=== PATIENT | male | born 1960 | race Caucasian/White ===

== ENCOUNTER 2017-06-02 18:41 | Emergency (ER) | payer OTHER ==
[~2017-06-02] VITALS: Ht 172.7 cm; Wt 70.6 kg
[2017-06-02 18:49] VITALS: BP 156/78; PULSE 66; TEMP 36.4; O2SAT 96; Ht 172.7 cm; Wt 70.6 kg
[2017-06-02] MEDS ORDERED: PROPARACAINE HCL 0.5% OP SOLN 15 ML BTL ONE (19:33)
[2017-06-02] MEDS ORDERED: CYCLOPENTOLATE HCL 1% OP SOLN 2 ML BTL OPL STA (19:48)
[2017-06-02] MEDS ORDERED: TOBRAMYCIN/DEXAMETHASONE OPH SUSP 2.5 ML BTL OPB STA (19:48)
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
== END 2017-06-02 20:17 | disposition home or self-care (01) ==
LOC: C.EDB 18:42 → C.EDD 20:17
DX: T26.12XA Burn of cornea and conjunctival sac, left eye, initial encounter (principal); T26.40XA Burn of unspecified eye and adnexa, part unspecified, initial encounter; T20.00XA Burn of unspecified degree of head, face, and neck, unspecified site, initial encounter; X10.1XXA Contact with hot food, initial encounter; Y92.9 Unspecified place or not applicable; F17.210 Nicotine dependence, cigarettes, uncomplicated

== ENCOUNTER 2022-04-06 03:36 | Observation (INO) ==
[2022-04-06] MEDS ORDERED: SODIUM CHLORIDE 0.9% 1000ML 500 ML IV ONE (03:54)
--- NOTE | 2022-04-06 03:55 | Emergency Department Note ---
Impression & Plan Chest pain ADMIT ED Provider Note HPI: The patient is a 61-year-old male who presents the emergency department with a chief complaint of chest pain. Patient states that he awoke shortly prior to arrival to the ED and was having pain substernally that radiated somewhat up to the right part of his neck and into his back. On arrival here to the ED the patient is hypertensive at 158/105, heart rate is within normal limits, he states his pain has "eased up". He is saturating well on room air on arrival. ROS: -Cardio: Chest pain *10 point review systems was conducted and is otherwise negative unless stated above *Outpatient medications and allergy history reviewed PE: General: Alert, NAD HEENT: Normocephalic, atraumatic Eyes: Extraocular eye movement is intact, no scleral erythema Pulmonary: Clear to auscultation bilaterally, no wheezing Cardio: Regular rate and rhythm GI: Abdomen is soft, nontender : No suprapubic tenderness MSK: No evidence of trauma or malformation of the extremities, no edema Skin: No evidence of rash Neuro: Alert, no focal deficits Psychiatric: Cooperative laboratory monitor: - An order was placed for continuous cardiac monitoring - Patient was noted to be in sinus rhythm with a rate of 65 CTA CHEST: No pulmonary emboli. No acute chest finding. No aortic aneurysm. Enlarged heart. No pericardial effusion. Dependent lung atelectasis. Innumerable liver cystic lesions. Radiologist: Renan Rodríguez MD Study ready at 04:17 and initial results transmitted at 04:49 EKG: Rate: 57 Rhythm: Sinus bradycardia Intervals: Within normal limits ST changes: No ST elevation Time: 0346 Medical Decision Making: Patient presented to the emergency department with chief complaint of chest pain, patient states the pain woke him from sleep at around 3 AM. Patient describes the pain as substernal in nature, states it does radiate somewhat to his right jaw. On arrival here to the ED the patient is in no acute distress, he is hypertensive but otherwise hemodynamically stable. IV was established, lab work obtained, troponin is within normal limits, CT angiography of the chest was obtained that does not show any evidence of aortic dissection or PE. Patient declined pain medication but on my reassessment states he still does have some mild chest discomfort, he does have hypertension here, also mentions history of hyperlipidemia that he is not currently on treatment for, given his age and risk factors and the fact that he still having discomfort, I do feel that he is appropriate for admission and stress testing. Patient is in agreement, case was discussed with the on-call hospitalist for [facility] and the patient was admitted in stable condition for further care. Diagnosis: 1. Chest pain, acute 2. Hypertension Disposition: ADMIT Gilberto Christopher DO Emergency Medicine Past Med/Surg History Medical History (Updated 04/06/22 @ 05:03 by Gilberto Christopher DO) No significant past medical history Social History Smoking Status: Current some day smoker Tobacco Type: Cigars Preferred Language: Palestinian Feels Safe at Home: Yes Allergies Allergies Allergy/AdvReac Type Severity Reaction Status Date / Time No Known Allergies Allergy Unverified 06/02/17 19:31 Results & Data (ED) Vital Signs Vital Signs - 24 hr 04/06/22 03:40 04/06/22 03:55 04/06/22 03:55 Temperature 36.5 C Temperature Source Temporal Artery Scan Pulse Rate 61 Pulse Rate [Finger] Respiratory Rate 20 Respiratory Effort / Characteristics Respiratory Depth Normal Blood Pressure 158/105 H Blood Pressure [Right Arm] Blood Pressure Mean 122 Blood Pressure Mean [Right Arm] Blood Pressure Position [Right Arm] Pulse Oximetry 98 Oxygen Delivery Method Room Air Room Air Room Air Sepsis New/Unexplained Change in Mental Status N/A Sepsis Action Taken by Nursing No Action Required 04/06/22 04:13 04/06/22 06:43 Temperature Temperature Source Pulse Rate Pulse Rate [Finger] 58 L 63 Respiratory Rate 16 18 Respiratory Effort / Characteristics Non-Labored Spontaneous Non-Labored Spontaneous Respiratory Depth Normal Normal Blood Pressure Blood Pressure [Right Arm] 134/90 128/87 Blood Pressure Mean Blood Pressure Mean [Right Arm] 104 100 Blood Pressure Position [Right Arm] Lying Pulse Oximetry 98 94 Oxygen Delivery Method Room Air Room Air Sepsis New/Unexplained Change in Mental Status Sepsis Action Taken by Nursing Laboratory Data Result diagrams: 04/06/22 03:52 04/06/22 03:52 Lab Results 04/06/22 04/06/22 04/06/22 Range/Units 03:52 03:52 03:52 WBC 8.59 (4.8-10.8) K/ul RBC 5.34 (4.63-6.08) M/uL Hgb 17.2 (14.0-18.0) g/dl Hct 48.9 (40.1-51.0) % MCV 91.6 (80.0-100.0) fL MCH 32.2 (25.0-34.0) pg MCHC 35.2 (32.0-36.0) g/dL RDW Std Deviation 40.0 (36.4-46.3) fL RDW Coeff of Franklin 12.0 (11.5-14.5) % Plt Count 202 (130-400) K/uL MPV 9.2 L (9.4-12.4) fL Immature Gran % (Auto) 0.2 % Neut % (Auto) 54.1 % Lymph % (Auto) 32.0 % Moore % (Auto) 6.8 % Eos % (Auto) 5.9 % Baso % (Auto) 1.0 % Neut # (Auto) 4.64 (1.4-6.5) K/uL Lymph # (Auto) 2.75 (1.2-3.4) K/uL Moore # (Auto) 0.58 (0.24-0.82) K/uL Eos # (Auto) 0.51 H (0-0.50) K/uL Baso # (Auto) 0.09 (0-0.2) K/uL Immature Gran # (Auto) 0.02 (0.00-0.02) K/uL PT 10.8 (9.0-12.0) Seconds INR 1.0 (0.9-1.1) APTT 27.6 (21.0-31.0) Seconds PTT Ratio 1.0 Sodium 139 (136-145) mmol/L Potassium 4.2 (3.5-5.1) mmol/L Chloride 106 (98-107) mmol/L Carbon Dioxide 27 (21-32) mmol/L Anion Gap 6 (3-11) BUN 21 (6-23) mg/dl Creatinine 1.12 (0.6-1.4) mg/dl Est Cr Clr Drug Dosing 67.9 ml/min Est GFR ( Amer) 82.3 ml/min Est GFR (Non-Af Amer) 71.0 ml/min BUN/Creatinine Ratio 18.8 (10-20) Glucose 89 (70-99(Fasting)) mg/dl Calcium 9.2 (8.5-10.1) mg/dl Total Bilirubin 0.5 (0.2-1.0) mg/dl AST 17 (13-39) U/L ALT 15 (7-52) U/L Alkaline Phosphatase 78 (34-104) U/L Troponin I High Sens 2.9 (0-20) pg/ml Total Protein 7.0 (6.0-8.3) gm/dl Albumin 4.4 (3.4-5.0) gm/dl Globulin 2.6 (2.5-4.0) gm/dl Albumin/Globulin Ratio 1.7 (0.9-2) Lipase 45 (11-82) U/L TSH (0.300-4.500) uIu/ml Lyme Disease IgG Ab (Negative) Lyme Disease IgM Ab (Negative) SARS-CoV-2, RNA, NAAT (NEGATIVE) 04/06/22 04/06/22 04/06/22 Range/Units 03:52 03:52 05:14 WBC (4.8-10.8) K/ul RBC (4.63-6.08) M/uL Hgb (14.0-18.0) g/dl Hct (40.1-51.0) % MCV (80.0-100.0) fL MCH (25.0-34.0) pg MCHC (32.0-36.0) g/dL RDW Std Deviation (36.4-46.3) fL RDW Coeff of Franklin (11.5-14.5) % Plt Count (130-400) K/uL MPV (9.4-12.4) fL Immature Gran % (Auto) % Neut % (Auto) % Lymph % (Auto) % Moore % (Auto) % Eos % (Auto) % Baso % (Auto) % Neut # (Auto) (1.4-6.5) K/uL Lymph # (Auto) (1.2-3.4) K/uL Moore # (Auto) (0.24-0.82) K/uL Eos # (Auto) (0-0.50) K/uL Baso # (Auto) (0-0.2) K/uL Immature Gran # (Auto) (0.00-0.02) K/uL PT (9.0-12.0) Seconds INR (0.9-1.1) APTT (21.0-31.0) Seconds PTT Ratio Sodium (136-145) mmol/L Potassium (3.5-5.1) mmol/L Chloride (98-107) mmol/L Carbon Dioxide (21-32) mmol/L Anion Gap (3-11) BUN (6-23) mg/dl Creatinine (0.6-1.4) mg/dl Est Cr Clr Drug Dosing ml/min Est GFR ( Amer) ml/min Est GFR (Non-Af Amer) ml/min BUN/Creatinine Ratio (10-20) Glucose (70-99(Fasting)) mg/dl Calcium (8.5-10.1) mg/dl Total Bilirubin (0.2-1.0) mg/dl AST (13-39) U/L ALT (7-52) U/L Alkaline Phosphatase (34-104) U/L Troponin I High Sens (0-20) pg/ml Total Protein (6.0-8.3) gm/dl Albumin (3.4-5.0) gm/dl Globulin (2.5-4.0) gm/dl Albumin/Globulin Ratio (0.9-2) Lipase (11-82) U/L TSH 4.462 (0.300-4.500) uIu/ml Lyme Disease IgG Ab Negative (Negative) Lyme Disease IgM Ab Negative (Negative) SARS-CoV-2, RNA, NAAT NEGATIVE (NEGATIVE) 04/06/22 Range/Units 05:53 WBC (4.8-10.8) K/ul RBC (4.63-6.08) M/uL Hgb (14.0-18.0) g/dl Hct (40.1-51.0) % MCV (80.0-100.0) fL MCH (25.0-34.0) pg MCHC (32.0-36.0) g/dL RDW Std Deviation (36.4-46.3) fL RDW Coeff of Franklin (11.5-14.5) % Plt Count (130-400) K/uL MPV (9.4-12.4) fL Immature Gran % (Auto) % Neut % (Auto) % Lymph % (Auto) % Moore % (Auto) % Eos % (Auto) % Baso % (Auto) % Neut # (Auto) (1.4-6.5) K/uL Lymph # (Auto) (1.2-3.4) K/uL Moore # (Auto) (0.24-0.82) K/uL Eos # (Auto) (0-0.50) K/uL Baso # (Auto) (0-0.2) K/uL Immature Gran # (Auto) (0.00-0.02) K/uL PT (9.0-12.0) Seconds INR (0.9-1.1) APTT (21.0-31.0) Seconds PTT Ratio Sodium (136-145) mmol/L Potassium (3.5-5.1) mmol/L Chloride (98-107) mmol/L Carbon Dioxide (21-32) mmol/L Anion Gap (3-11) BUN (6-23) mg/dl Creatinine (0.6-1.4) mg/dl Est Cr Clr Drug Dosing ml/min Est GFR ( Amer) ml/min Est GFR (Non-Af Amer) ml/min BUN/Creatinine Ratio (10-20) Glucose (70-99(Fasting)) mg/dl Calcium (8.5-10.1) mg/dl Total Bilirubin (0.2-1.0) mg/dl AST (13-39) U/L ALT (7-52) U/L Alkaline Phosphatase (34-104) U/L Troponin I High Sens 2.9 (0-20) pg/ml Total Protein (6.0-8.3) gm/dl Albumin (3.4-5.0) gm/dl Globulin (2.5-4.0) gm/dl Albumin/Globulin Ratio (0.9-2) Lipase (11-82) U/L TSH (0.300-4.500) uIu/ml Lyme Disease IgG Ab (Negative) Lyme Disease IgM Ab (Negative) SARS-CoV-2, RNA, NAAT (NEGATIVE) Administered Medications Discontinued Medications Aspirin (Aspirin Chew 324 Mg) 324 mg PO NOW STA Stop: 04/06/22 05:29 Last Admin: 04/06/22 06:41 Dose: 324 mg Documented By: CC Sodium Chloride (Nss 1000ml) 500 mls @ 999 mls/hr IV .Q31M ONE Stop: 04/06/22 04:24 Last Infusion: 04/06/22 04:48 Dose: 0 mls/hr Documented By: Admin: 04/06/22 04:15 Dose: 999 mls/hr Documented By: CHELSY Ioversol (Optiray 300 500ml) 125 ml IV ONCE ONE Stop: 04/06/22 04:10 Last Admin: 04/06/22 04:10 Dose: 97 ml Documented By: MARLA Imaging Data Radiologist's Impression: Chest CTA 04/06/22 03:54 CT ANGIOGRAPHY OF THE CHEST, PULMONARY EMBOLUS PROTOCOL CLINICAL HISTORY: Chest pain. Shortness of breath. COMPARISON STUDY: No previous studies for comparison. TECHNIQUE: Following IV administration of 97 mL of Optiray, helical axial images of the chest were obtained utilizing the pulmonary embolus protocol. Maximal intensity projections and sagittal and coronal reformats were viewed on an independent 3D workstation. IV contrast was administered without complication. Automated exposure control was utilized for the study. A dose lowering technique was utilized adhering to the principles of ALARA. CT DOSE: 232.12 mGy.cm FINDINGS: No pulmonary emboli are identified. Mild cardiomegaly is noted. There is no pericardial effusion. No enlarged thoracic lymph nodes are present. There is no pneumothorax or pleural effusion. Linear subpleural opacities reflect atelectasis. There is no consolidation to suggest pneumonia. No acute fracture or suspicious lesion within the visualized bony thorax is noted. Innumerable cystic hepatic lesions are noted. These favor cysts. Biliary hamartomas could appear similar. These are benign. IMPRESSION: 1. No pulmonary emboli identified. 2. Mild cardiomegaly. 3. Linear subpleural opacities consistent with atelectasis. ACT 112: Negative or not required by law. Electronically signed by: Cristóbal Sterling M.D. 04/06/2022 7:14 AM Discharge Plan Visit Data Chief Complaint: Chest Pain Stated Complaint: CHEST PAIN ED Provider: Gilberto Christopher Discharge Problem: Chest pain Forms Stand Alone Forms: [facility] Referrals Referrals: Jg Vu MD [Primary Care Provider] - : Chest pain Qualifiers: Chest pain type: unspecified Qualified Code(s): R07.9 - Chest pain, unspecified
[2022-04-06 04:04] LABS: Basophils # (auto) 0.09 K/uL (0-0.2); Eosinophils # (auto) 0.51 K/uL (0-0.50); Eosinophils % (auto) 5.9 %; Hematocrit (blood only) 48.9 % (40.1-51.0); Hemoglobin 17.2 g/dl (14.0-18.0); Immature Granulocytes # (auto) 0.02 K/uL (0.00-0.02); Immature Granulocytes % (auto) 0.2 %; Lymphocytes # (auto) 2.75 K/uL (1.2-3.4); Mean Corpuscular Hemoglobin 32.2 pg (25.0-34.0); Mean Corpuscular Hgb Conc 35.2 g/dL (32.0-36.0); Mean Corpuscular Volume 91.6 fL (80.0-100.0); Mean Platelet Volume 9.2 fL (9.4-12.4); Monocytes # (auto) 0.58 K/uL (0.24-0.82); Monocytes % (auto) 6.8 %; Neutrophils # (auto) 4.64 K/uL (1.4-6.5); Neutrophils % (auto) 54.1 %; Platelet Count 202 K/uL (130-400); Red Blood Count 5.34 M/uL (4.63-6.08); White Blood Count 8.59 K/ul (4.8-10.8)
[2022-04-06] MEDS ORDERED: OPTIRAY 300 500mL IV ONE (04:09)
[2022-04-06 04:18] LABS: Partial Thromboplastin Time 27.6 Seconds (21.0-31.0); Prothrombin Time 10.8 Seconds (9.0-12.0)
[2022-04-06 04:27] LABS: Albumin Globulin Ratio 1.7 (0.9-2); Albumin Level 4.4 gm/dl (3.4-5.0); BUN Creatinine Ratio 18.8 (10-20); Bilirubin,Total 0.5 mg/dl (0.2-1.0); Calcium 9.2 mg/dl (8.5-10.1); Creatinine Clr Calc Pharmacy 67.9 ml/min; Est GFR (African American) 82.3 ml/min; Globulin 2.6 gm/dl (2.5-4.0); Potassium 4.2 mmol/L (3.5-5.1)
[2022-04-06 04:29] LABS: Troponin I High Sensitivity 2.9 pg/ml (0-20)
[2022-04-06] MEDS ORDERED: ASPIRIN CHEW 324 MG PO STA (05:28)
--- NOTE | 2022-04-06 05:46 | History & Physical Report ---
Date of Service April 06, 2022 Assessment & Plan (1) Chest pain: Plan: Rule out ACS given patient risk factors for ischemic heart disease HTN, patient BP elevated upon arrival at the ER Possible longstanding hypertension given cardiomegaly on CT chest initial read Daily alcohol intake, patient and not concerned about abuse Ongoing tobacco abuse OBS PCU Dobutamine stress echo Aspirin for CAD prevention until ACS ruled out Initiate lisinopril if with persistent BP elevation Nicotine patch as needed DVT prophylaxis. Lovenox subcu Full code Text document was generated using [employer] voice recognition software. It may contain grammatical or spelling errors. Kindly contact undersigned for clarification of any documentation item in question. History of Present Illness Chief Complaint: Chest pain Primary Care Provider: Jg Vu MD History obtained from patient, family, and records. Medical history significant for ongoing tobacco abuse. Patient woke up with achy chest pain going to his back and neck with some sweatiness. No fever, no chills, no shortness of breath. No unusual cough symptoms. May have had short-lived episodes a few years back which prompted a drug stress test as per patient. Patient took aspirin at home. Possible tick exposure at home due to dog and hunting. Patient brought by to the ER for evaluation. Chest pain currently not as bad as per patient. Medical History as above Surgical History : Inguinal hernia repair, foot surgery Family History : Heart disease, breast cancer, MS, colon cancer, leukemia Personal/Social history : Occasional cigar use, 4 beers nightly denies abuse, svp marketing & communications at [employer] Allergies Allergy/AdvReac Type Severity Reaction Status Date / Time No Known Allergies Allergy Unverified 06/02/17 19:31 Past Med/Surg History Medical History (Updated 04/06/22 @ 05:03 by Gilberto Christopher DO) No significant past medical history Social History Smoking Status: Current some day smoker Tobacco Type: Cigars Second Hand Exposure: No; Do You Dip or Chew Tobacco: No; Tobacco Cessation Education Requested by Patient: No Hx Alcohol Use: No Hx Substance Use: No Preferred Language: Arabic Communication Ability: Effective Data Sciences Director Required: No Beliefs That Will Affect Care: None Current Living Situation: Spouse Other Information That Helps Us Care for You: No Feels Safe at Home: Yes Safety Concerns: Feels Safe At This Time Assistive Devices: None Review of Systems Review of Systems: As per HPI, all other systems reviewed and negative Physical Exam Physical Exam: GENERAL: Comfortable, no respiratory distress SKIN: Normal color, warm HEENT: [place] palpebral conjunctivae, no ptosis, moist buccal mucosa NECK : Supple, no tenderness CHEST : CTA, no tenderness HEART : Bradycardic, no obvious murmurs ABDOMEN: Some distention, nontender EXTREMITIES : No LE swelling/tenderness, no other conspicuous deformities noted NEUROLOGIC : Coherent, no facial asymmetry, no other gross focality Results & Data Results & Data ([facility]) Vital Signs (Past 12 Hours) Vital Signs Temp Pulse Pulse Resp BP BP Pulse Ox 04/06/22 04:13 58 L 16 134/90 98 04/06/22 03:55 04/06/22 03:55 04/06/22 03:40 36.5 C 61 20 158/105 H 98 O2 Del Method 04/06/22 04:13 Room Air 04/06/22 03:55 Room Air 04/06/22 03:55 Room Air 04/06/22 03:40 Room Air Laboratory Results Laboratory Results WBC 8.59 K/ul (4.8-10.8) 04/06/22 03:52 RBC 5.34 M/uL (4.63-6.08) 04/06/22 03:52 Hgb 17.2 g/dl (14.0-18.0) 04/06/22 03:52 Hct 48.9 % (40.1-51.0) 04/06/22 03:52 MCV 91.6 fL (80.0-100.0) 04/06/22 03:52 MCH 32.2 pg (25.0-34.0) 04/06/22 03:52 MCHC 35.2 g/dL (32.0-36.0) 04/06/22 03:52 RDW Std Deviation 40.0 fL (36.4-46.3) 04/06/22 03:52 RDW Coeff of Franklin 12.0 % (11.5-14.5) 04/06/22 03:52 Plt Count 202 K/uL (130-400) 04/06/22 03:52 MPV 9.2 fL (9.4-12.4) L 04/06/22 03:52 Immature Gran % (Auto) 0.2 % 04/06/22 03:52 Neut % (Auto) 54.1 % 04/06/22 03:52 Lymph % (Auto) 32.0 % 04/06/22 03:52 [place] % (Auto) 6.8 % 04/06/22 03:52 Eos % (Auto) 5.9 % 04/06/22 03:52 Baso % (Auto) 1.0 % 04/06/22 03:52 Neut # (Auto) 4.64 K/uL (1.4-6.5) 04/06/22 03:52 Lymph # (Auto) 2.75 K/uL (1.2-3.4) 04/06/22 03:52 [place] # (Auto) 0.58 K/uL (0.24-0.82) 04/06/22 03:52 Eos # (Auto) 0.51 K/uL (0-0.50) H 04/06/22 03:52 Baso # (Auto) 0.09 K/uL (0-0.2) 04/06/22 03:52 Immature Gran # (Auto) 0.02 K/uL (0.00-0.02) 04/06/22 03:52 PT 10.8 Seconds (9.0-12.0) 04/06/22 03:52 INR 1.0 (0.9-1.1) 04/06/22 03:52 APTT 27.6 Seconds (21.0-31.0) 04/06/22 03:52 PTT Ratio 1.0 04/06/22 03:52 Sodium 139 mmol/L (136-145) 04/06/22 03:52 Potassium 4.2 mmol/L (3.5-5.1) 04/06/22 03:52 Chloride 106 mmol/L (98-107) 04/06/22 03:52 Carbon Dioxide 27 mmol/L (21-32) 04/06/22 03:52 Anion Gap 6 (3-11) 04/06/22 03:52 BUN 21 mg/dl (6-23) 04/06/22 03:52 Creatinine 1.12 mg/dl (0.6-1.4) 04/06/22 03:52 Est Cr Clr Drug Dosing 67.9 ml/min 04/06/22 03:52 Est GFR ( Amer) 82.3 ml/min 04/06/22 03:52 Est GFR (Non-Af Amer) 71.0 ml/min 04/06/22 03:52 BUN/Creatinine Ratio 18.8 (10-20) 04/06/22 03:52 Glucose 89 mg/dl (70-99(Fasting)) 04/06/22 03:52 Calcium 9.2 mg/dl (8.5-10.1) 04/06/22 03:52 Total Bilirubin 0.5 mg/dl (0.2-1.0) 04/06/22 03:52 AST 17 U/L (13-39) 04/06/22 03:52 ALT 15 U/L (7-52) 04/06/22 03:52 Alkaline Phosphatase 78 U/L (34-104) 04/06/22 03:52 Troponin I High Sens 2.9 pg/ml (0-20) 04/06/22 03:52 Total Protein 7.0 gm/dl (6.0-8.3) 04/06/22 03:52 Albumin 4.4 gm/dl (3.4-5.0) 04/06/22 03:52 Globulin 2.6 gm/dl (2.5-4.0) 04/06/22 03:52 Albumin/Globulin Ratio 1.7 (0.9-2) 04/06/22 03:52 Lipase 45 U/L (11-82) 04/06/22 03:[address] chest initial read: No pulmonaryemboli. No acute chest finding. No aortic aneurysm. Enlarged heart. No pericardial effusion. Dependent lung atelectasis. Innumerable liver cystic lesions. EKG as per my interpretation :Rate 55, sinus bradycardia, normal axis, septal infarct (1) Chest pain Chest pain type: unspecified Qualified Code(s): R07.9 - Chest pain, unspecified
[2022-04-06] MEDS ORDERED: NITROGLYCERIN SL 0.4 MG/TAB TAB SL PRN ×2 (06:55→08:47)
[2022-04-06] MEDS ORDERED: SODIUM CHLORIDE 0.9% 1000ML 1,000 ML IV ONE (06:55)
[2022-04-06] MEDS ORDERED: LORazepam 0.5 MG TAB PO PRN (06:55)
[2022-04-06] MEDS ORDERED: MoRPHine SULFATE 2 MG/ML CARP IV PRN (06:55)
[2022-04-06] MEDS ORDERED: traMADol HCL 50 MG TABLET PO PRN (06:55)
[2022-04-06 07:15] LABS: Lyme Ab IgG w/WB Rflx Negative (Negative); Lyme Ab IgM w/WB Rflx Negative (Negative)
--- NOTE | 2022-04-06 07:15 | CT Scan Report ---
CT ANGIOGRAPHY OF THE CHEST, PULMONARY EMBOLUS PROTOCOL CLINICAL HISTORY: Chest pain. Shortness of breath. COMPARISON STUDY: No previous studies for comparison. TECHNIQUE: Following IV administration of 97 mL of Optiray, helical axial images of the chest were ob tained utilizing the pulmonary embolus protocol. Maximal intensity projections and sagittal and romy nal reformats were viewed on an independent 3D workstation. IV contrast was administered without com plication. Automated exposure control was utilized for the study. A dose lowering technique was uti lized adhering to the principles of ALARA. CT DOSE: 232.12 mGy.cm FINDINGS: No pulmonary emboli are identified. Mild cardiomegaly is noted. There is no pericardial ef fusion. No enlarged thoracic lymph nodes are present. There is no pneumothorax or pleural effusion. L inear subpleural opacities reflect atelectasis. There is no consolidation to suggest pneumonia. No ac [place] fracture or suspicious lesion within the visualized bony thorax is noted. Innumerable cystic hepa tic lesions are noted. These favor cysts. Biliary hamartomas could appear similar. These are benign. IMPRESSION: 1. No pulmonary emboli identified. 2. Mild cardiomegaly. 3. Linear subpleural opacities consistent with atelectasis. ACT 112: Negative or not required by law. Electronically signed by: Cristóbal Sterling M.D. 04/06/2022 7:14 AM
[2022-04-06] MEDS ORDERED: ACETAMINOPHEN 325 MG TAB PO PRN (08:47)
[2022-04-06] MEDS ORDERED: ENOXAPARIN INJ 40 MG/0.4 ML SYR SQ SCH (09:00)
[2022-04-06] MEDS ORDERED: METOPROLOL TARTRATE 1 MG/ML VIAL IV ONE (09:58)
[2022-04-06] MEDS ORDERED: ATROPINE SULFATE 0.1 MG/ML 10ML SYR IV ONE (09:58)
[2022-04-06] MEDS ORDERED: DOBUTamine HCL 12.5 MG/ML 20 ML VIAL IV ONE (09:58)
--- NOTE | 2022-04-06 13:30 | Discharge Summary ---
Discharge Summary Date of Service April 06, 2022 Notes For Next Care Provider Please continue the workup for chest pain etiology He underwent a dobutamine stress echo with no abnormalities found Medication Changes From Visit N/A Admission HPI Per Admitting Provider History obtained from patient, family, and records. Medical history significant for ongoing tobacco abuse. Patient woke up with achy chest pain going to his back and neck with some sweatiness. No fever, no chills, no shortness of breath. No unusual cough symptoms. May have had short-lived episodes a few years back which prompted a drug stress test as per patient. Patient took aspirin at home. Possible tick exposure at home due to dog and hunting. Patient brought by to the ER for evaluation. Chest pain currently not as bad as per patient. Medical History as above Surgical History : Inguinal hernia repair, foot surgery Family History : Heart disease, breast cancer, MS, colon cancer, leukemia Personal/Social history : Occasional cigar use, 4 beers nightly denies abuse, jc Principal Dx & Hospital Course #1 = Principal Diagnosis (1) Chest pain: Rule out ACS given patient risk factors for ischemic heart disease HTN, patient BP elevated upon arrival at the ER Possible longstanding hypertension given cardiomegaly on CT chest initial read Daily alcohol intake, patient and not concerned about abuse Ongoing tobacco abuse OBS PCU Dobutamine stress echo Aspirin for CAD prevention until ACS ruled out Initiate lisinopril if with persistent BP elevation Nicotine patch as needed DVT prophylaxis. Lovenox subcu Full code Text document was generated using [employer] voice recognition software. It may contain grammatical or spelling errors. Kindly contact undersigned for clarification of any documentation item in que stion. Hospital Stay Data Consultations 04/06/22 05:24 ED Decision to Admit Stat Diagnostic Imagining Performed 04/06/22 03:54 CT angio chest PE protocol Urgent Pending Results Patient Have Any Pending Studies at Discharge: No Discharge Instructions Given to Patient (Per Discharging Provider) Please follow-up with your primary care physician in one week to continue the investigation into the chest pain you are experiencing, especially if symptoms continue. It was a pleasure taking care of you! Please call if you have any questions or problems. You can reach a [facility] hospitalist on duty at [facility] 24 hours a day by calling [phone]. Take care of yourself. Verna Martin DO [facility]
[2022-04-06] MEDS ORDERED: FAMOTIDINE 20 MG in SYRINGE 3 ML IV STA (13:41)
--- NOTE | 2022-04-06 14:16 | Electrocardiogram Report ---
Test Reason : Blood Pressure : / mmHG Vent. Rate : 057 BPM Atrial Rate : 057 BPM P-R Int : 160 ms QRS Dur : 090 ms QT Int : 432 ms P-R-T Axes : 061 043 039 degrees QTc Int : 420 ms Sinus bradycardia Septal infarct , age undetermined Abnormal ECG No previous ECGs available Confirmed by Jigar Vazquez ([id number]) on 04/06/2022 2:16:23 PM Referred By: REFERRED SELF Confirmed By:Jigar Vazquez
[2022-04-07] MEDS ORDERED: ASPIRIN 81 MG ECTAB PO SCH (09:00)
== END 2022-04-06 14:19 | disposition home or self-care (01) ==
LOC: 4W 03:36 → ED 03:36 → 4W 08:15